=== PATIENT | female | born 1990 | race Caucasian/White ===

== ENCOUNTER → 2018-05-19 01:09 | Outpatient (CLI) | payer MEDICAID | END | disposition home or self-care (01) | LOC: D.LDO 01:09 | PROVIDERS: ATTEND Obstetrics & Gynecology | DX: O26.853 Spotting complicating pregnancy, third trimester (principal); Z3A.37 37 weeks gestation of pregnancy ==

== ENCOUNTER 2018-05-29 05:05 | Inpatient (IN) | payer MEDICAID ==
[~2018-05-29] VITALS: Ht 167.6 cm; Wt 120.9 kg
[2018-05-29 06:08] LABS: HEMATOCRIT 35.4 % (36.0-48.0); MCH 30.3 pg (26.0-34.0); MCHC 33.9 g/dL (31.0-37.0); MCV 89.4 fL (80.0-100.0); MEAN PLATELET VOLUME 9.9 fL (7.4-10.4); RBC 3.96 10x6/uL (4.00-5.40); RDW 13.8 % (11.5-14.5); WBC 12.1 10x3/uL (4.8-10.8)
[2018-05-29] MEDS ORDERED: PREPLUS CA-FE1 EACH PO (06:14)
[2018-05-29 06:28] VITALS: BP 110/72; Ht 167.6 cm; Wt 120.9 kg
--- NOTE | 2018-05-29 19:55 | NUR ---
PATIENT AMBULATED WITH ASSISTANCE TO ROOM 1273 FOR CARE. PT C/O CONTINUED PAIN TO HER LOWER BACK WHERE THE EPIDURAL WAS PLACED WELL ABDOMINAL CRAMPING, ASKING WHEN HER NEXT MOTRIN IS DUE. INFORMED HER THAT HER MOTRIN IS SCHEDULED EVERY 8HRS AND THAT IT WILL BE DUE AROUND 0119. DR ALFORD CALLED ABOUT PT COMPLAINT OF PAIN, NEW ORDERS NOTED.
--- NOTE | 2018-05-29 19:58 | NUR ---
TYLENOL#3 ADMINISTERED WITH WATER AT THIS TIME. SEE EMAR
--- NOTE | 2018-05-29 20:00 | NUR ---
DR. ALFORD CALLED UNIT AND INQUIRED ABOUT STATUS OF MOTRIN ORDER DUE TO SURGERY IN AM. MD STATES TO HOLD AFTER MIDNIGHT AND CONTINUE WITH TYLENOL #3 ORDERED FOR PAIN, IF NEEDED.
--- NOTE | 2018-05-29 20:25 | NUR ---
WALKING IN HALLWAY. GAIT STEADY.
--- NOTE | 2018-05-29 21:46 | NUR ---
LYING IN BED WITH INFANT IN OPEN CRIB AT BEDSIDE. DENIES ANY NEEDS AT THIS TIME.
--- NOTE | 2018-05-29 22:10 | NUR ---
PT. LYING ON RT SIDE HOLDING . STATES ABD. CRAMPING IS ABOUT THE SAME BUT THAT SHE REMEMBERS THAT CRAMPING IS WORSE WITH . STATES PAIN SUBSIDES AND THEN RETURNS. STATES SOME STINGING WITH VOIDING. WITH SUPPLY ZULEIKA BOTTLE FOR HER TO USE TO SPRAY PERINEAL AREA SHE VOIDS.
--- NOTE | 2018-05-29 22:53 | NUR ---
PT. CALLED TO REPORT THAT SHE HAS COMPLETED AND READY FOR MEDS, ETC.
[2018-05-29 23:01] VITALS: BP 120/60
--- NOTE | 2018-05-29 23:01 | NUR ---
SALINE LOCK FLUSHED. FOB HOLDING AT PRESENT. PT. ASKING REASON FOR BETADINE WITH ZULEIKA BOTTLE. INFORMED THAT SHE COULD USE WARM WATER IN ZULEIKA BOTTLE WHEN VOIDING TO HELP WITH STINGING OR COULD ADD BETADINE TO MAKE WATER TEA COLORED IF USING FOR CLEANING PERINEAL AREA. PT. RELATES THAT SHE WILL JUST USE WITH WARM WATER. INFORMED PT. WHEN NEXT TYLENOL #3 WAS DUE AND PT. RELATES THAT SHE WILL TAKE AT THAT TIME. DISCUSSED HOLD ON MOTRIN DUE TO SURGERY IN AM AND PT.STATES UNDERSTANDING.
[2018-05-30] VITALS (7 sets, daily range): BP systolic 106–122; BP diastolic 59–75
--- NOTE | 2018-05-30 00:04 | NUR ---
PT. LYING ON RT SIDE LOOKING AT PHONE. INFANT IN OPEN CRIB AT BEDSIDE. FOB SLEEPING ON SOFA. PT. RATES PAIN A 7 OF 10 ON PAIN SCALE. STATES SHE HAS ABD. CRAMPING AND ALSO BACKPAIN. ADMITS SHE IS SLEEPY. PAIN MED GIVEN ORDERED. FUNDUS FIRM U/3 AND MIDLINE. LOCHIA RUBRA SCANT TO MOD. INQUIRED IF PT. DESIRED LIGHTS DIMMED AND PT. REPORTS THAT SHE DOES. REMINDED PT. THAT SHE DOES NOT NEED TO EAT OR DRINK AFTER MIDNIGHT DUE TO PLANNED SURGERY IN AM. INFORMED SIPS OF WATER WITH MEDS IS ACCEPTABLE. PT. STATES UNDERSTANDING.
--- NOTE | 2018-05-30 01:05 | NUR ---
PT. SITTING UP IN BED HOLDING INFANT WHICH IS CURRENTLY ASLEEP. STATES PAIN HAS NOT RESOLVED. INQUIRED IF SHE FELT A WARM BLANKET TO BACK AND ABD. MIGHT HELP. PT. STATES THAT SHE FELT IT WOULD. WARM BLANKETS FROM BLANKET WARMER APPLIED TO BACK AND PT. ABD. INFORMED WOULD BE BACK TO GET INFANT AT APPROX. 0130 FOR WEIGHT AND VITAL SIGNS. PT. STATES UNDERSTANDING.
--- NOTE | 2018-05-30 01:50 | NUR ---
INFANT TO PATIENT FOR FEEDING. ENCOURAGED PT. TO KEEP SKIN TO SKIN WHILE FEEDING DUE TO LOW TEMP. AT LAST CHECK. PT. STATES UNDERSTANDING.
--- NOTE | 2018-05-30 02:18 | NUR ---
CALLED TO REPORT THAT WAS FINISHED . ENCOURAGED PT. TO KEEP INFANT SKIN TO SKIN FOR A WHILE LONGER TO GET HIM WARM. PT. STATES SHE ENJOYS HOLDING HIM SO THAT WAS FINE.
--- NOTE | 2018-05-30 02:30 | NUR ---
FOB HOLDING AT PRESENT. PT. UP TO BATHROOM. LYING UNDER BLANKET WITH FOB. TAKEN FROM FOB AND TEMP. CHECKED AND RESWADDLED IN TWO BLANKETS. HAT REMAINS ON.
--- NOTE | 2018-05-30 04:10 | NUR ---
PT. SITTING UP IN BED. INFANT IN OPEN CRIB AT BEDSIDE. INQUIRED IF PT. DESIRED PAIN MED. PT. REPLIES "I GUESS". INFORMED WOULD BRING. FOB SLEEPING ON SOFA.
--- NOTE | 2018-05-30 05:11 | NUR ---
PT. CALLED AND STATES THAT SHE WOULD LIKE TO GIVE FORMULA. STATES SHE IS FRUSTRATED WITH . INQUIRED ABOUT HER PAIN LEVEL. STATES SHE CAN'T TELL ANY DIFFERENCE FROM WHEN SHE TOOK PAIN MED.
--- NOTE | 2018-05-30 05:19 | NUR ---
DR. ALFORD CALLED AND INFORMED THAT PT. CONTINUES TO COMPLAIN OF ABD. CRAMPING AND BACKPAIN. REPORT GIVEN OF FREQ. TYLENOL # 3 HAS BEEN GIVEN. ORDER RECEIVED.
--- NOTE | 2018-05-30 05:32 | NUR ---
FUR CLEANER CALLED FOR PYXIS OVERRIDE FOR PAIN MED.
--- NOTE | 2018-05-30 05:45 | NUR ---
ADDITIONAL TYLENOL #3 GIVEN DIRECTED PER . PT. STATES THAT SHE IS REALLY TIRED AND SHE HAS BEEN STRESSING ABOUT AND SHE DESIRES TO BOTTLE FEED FOR NOW ON. INFORMED WOULD INFORM NBN PERSONNEL.
--- NOTE | 2018-05-30 07:30 | NUR ---
AM ASSESSMENT COMPLETED CHARTED ON FLOWSHEET. SURGERY CHECKLIST ALSO DONE AT THIS TIME. FUNDUS FIRM AT U/U WITH LIGHT BLEEDING NOTED TO ZULEIKA PAD, PT DENIES CLOTS WITH VOIDS. SHE DOES COMPLAIN OF CONSTANT CRAMPING AND "ACHE" TO LOWER BACK THAT SHE RATES AT 8/10, STATES THAT SHE HAS NOT GOTTEN ANY RELIEF THRU THE NIGHT. PT IS TALKING ABOUT HER DISCOMFORT DR RUIZ ENTERS ROOM, PT EXPLAINS PAIN TO MD WHO QUESTIONS WHEN LAST MOTRIN WAS RECEIVED EMAR CHECKED, VERBAL ORDER THAN RECEIVED TO GIVEN 30MG TORDAL IV NOW. MD QUESTIONS WHY SHE WAS NOT NOTIFIED ABOUT PT DISCOMFORT AND WHY MOTRIN WAS HELD. EXPLAINED THAT REPORT RECIEVED THIS AM THAT MD AIR HOSE COUPLER WAS NOTIFIED ABOUT PT PAIN AND THERE WAS A CHANGE TO MED/DOSE GIVEN. NO OTHER QUESTIONS FROM MD.
--- NOTE | 2018-05-30 07:34 | NUR ---
LAB CALLED TO CHECK ON CBC RESULTS. ADAMA REPORTS THAT HAS NOT BEEN DRAWN AT THIS TIME BUT WILL GET DRAWN WENDY.
--- NOTE | 2018-05-30 07:35 | NUR ---
TORDAL GIVEN SLOW IV PUSH, SALINE LOCK FLUSHED WITH 5ML PRIOR TO MED GIVEN AND AFTER WITH ANOTHER 5ML. PT DENIES DISCOMFORT WITH IVPUSH. DENIES NEEDS AT THIS TIME. LIGHT TURNED OFF PER REQUEST. SIDE RAILS UP X 2 WITH PHONE AND CALL LIGHT WITH IN HER REACH.
[2018-05-30 08:04] LABS: BASOPHILS 0.1 % (0-2); EOSINOPHILS 1.7 % (0-7); HEMATOCRIT 32.4 % (36.0-48.0); HEMOGLOBIN 10.8 g/dL (12-16); IMMATURE GRANULOCYTES 0.3 % (0-5); LYMPHOCYTES 25.7 % (15-50); MCH 30.1 pg (26.0-34.0); MCHC 33.3 g/dL (31.0-37.0); MCV 90.3 fL (80.0-100.0); MEAN PLATELET VOLUME 10.1 fL (7.4-10.4); MONOCYTES 7.1 % (2-11); NEUTROPHILS 65.1 % (40-80); PLATELET COUNT 203 10x3/uL (130-400); RBC 3.59 10x6/uL (4.00-5.40); WBC 10.4 10x3/uL (4.8-10.8)
--- NOTE | 2018-05-30 08:15 | NUR ---
PT LYING TO LEFT SIDE IN BED. WAKES UPON ENTERING ROOM. STATES PAIN MEDICATION RELIEVING PAIN.
--- NOTE | 2018-05-30 10:19 | NUR ---
PT LYING TO RIGHT SIDE IN BED. EYES CLOSED. RESP NON-LABORED. SO IN ROOM WITH PT AND INFANT.
--- NOTE | 2018-05-30 11:31 | NUR ---
PT TO OR VIA STRETCHER PER OR STAFF.
--- NOTE | 2018-05-30 14:18 | NUR ---
RECEIVED PT FROM VIA STRETCHER TO ROOM 1273. PT TRANSFERS ONTO BED PER SELF. STATES LEGS ARE NUMB, BUT ABLE TO MOVE OVER TO BED. VSS. PT AAO X 3. HRRR WITHOUT AUDIBLE MURMUR. BBS CLEAR. BS X 4. ABDOMEN SOFT/NON-DISTENDED. DRESSING TO UMB DRY WITHOUT DRAINAGE NOTED. PIV TO RIGHT WRIST OF NS INFUSING AT KVO RATE. SITE CLEAR. DESIR TO GRAVITY DRAINING CLEAR, YELLOW URINE. FUNDUS FIRM AT U/1. RUBRA LOCHIA SMALL AMT. SCDS ON BLE. PUMP ON. PT STATES PAIN OF "5" ON 0-10 PAIN SCALE. ORIENTED TO ROOM, BED, AND CALL LIGHT. SR UPX 2. CALL LIGHT IN REACH.
--- NOTE | 2018-05-30 14:22 | NUR ---
DR RUIZ TO ROOM. VISITS WITH PT. ORDERS RECEIVED.
--- NOTE | 2018-05-30 14:34 | NUR ---
MOTRIN 800 MG, PERCOCET 5/325, TUCKS, AND DERMAPLAST SPRAY GIVEN ORDERED. PT INSTRUCTED ON MEDS. VERBALIZES UNDERSTANDING. PIV CONVERTED TO SALINE LOCK. SITE CLEAR.
--- NOTE | 2018-05-30 15:22 | NUR ---
PT STATES DESIRE TO AMB TO BR. DESIR DC'D WITH 575 ML OF CLEAR, YELLOW URINE NOTED IN BAG. PT AMBULATES TO BR. UNABLE TO VOID. PERICARE DONE PER PT. PANTIES AND PAD ON. PT AMB BACK TO BED. BERTHA ACTIVITY WELL.
--- NOTE | 2018-05-30 16:30 | NUR ---
PT SITTING UP IN BED. CARING FOR INFANT. DENIES NEEDS OR C/O.
--- NOTE | 2018-05-30 17:00 | NUR ---
PT SITTING UP IN BED. VISITS WITH FAMILY. DENIES C/O OR NEEDS.
--- NOTE | 2018-05-30 18:42 | NUR ---
PT SITTING UP ON SIDE OF BED. CARING FOR . C/O INCISIONAL PAIN. REQUESTS AND RECEIVES PERCOCET 5/325 PO ORDERED. PT INSTRUCTED ON MED. VERBALIZES UNDERSTANDING.
--- NOTE | 2018-05-30 19:14 | NUR ---
BEDSIDE ROUNDS MADE. PT CONVERSING WITH VISITORS, DENIES NEEDS. BED IN LOW POSITION WITH UPPER SIDE RAILS RAISED X2. CALL LIGHT AND PHONE WITHIN REACH. WILL CONTINUE TO MONITOR AND ASSIST PRN.
--- NOTE | 2018-05-30 20:34 | NUR ---
FORMULA PROVIDED PER REQUEST. C/O INTERMITTENT ABD CRAMPING 06/29 AND CONSTANT INCISIONAL ACHING/BURNING/STINGING 08/29. REVIEWED PAIN INTERVENTIONS WITH PT, REQUEST 2 TABS TYLENOL #3 PER ORDER, GIVEN PER ORDER AND PT REQUEST. MILK OF MAG GIVEN, SL TO RIGHT WRIST FLUSHED WITHOUT DIFFICULTY, NO S/S OF INFILTRATION NOTED. REQUESTED ASSESSMENT BE DONE FOLLOWING FEEDING . INSTUCTED TO CALL USING CALL LIGHT, VERBALIZES UNDERSTANDING. ICE WATER AND CLEAN RECEIVING BLANKETS PROVIDED. BED IN LOW POSITION WITH UPPER SIDE RAILS RAISED X2. CALL LIGHT AND PHONE WITHIN REACH.
--- NOTE | 2018-05-30 21:06 | NUR ---
SHIFT ASSESSMENT COMPLETED. REPORTS THAT IS IN NBN FOR HEARING SCREEN. PAIN REASSESSMENT COMPLETED, REPORTS THAT PAIN "IS A LITTLE BETTER", 6/10 CONSTANT INCISIONAL ACHING, DENIES NEED FOR ADDITIONAL INTERVERNTION AT THIS TIME. VSS. BREATH SOUNDS CLEAR AND EQUAL BILATERALLY, REGULAR RATE NOTED, NO S/S OF DISTRESS. FUNDUS FIRM, MIDLINE AND U2 WITH SCANT RUBRA LOCHIA, NO CLOTS PRESENT. PT DENIES CLOTS WHEN VOIDING. STATES THAT SHE IS PASSING FLATUS AND VOIDING WITHOUT DIFFICULTY. BOWEL SOUNDS PRESENT AND ACTIVE X4 QUADS. BORDERED GAUZED WITH TEGADERM OVER IT NOTED TO UNBILICUS WITH SMALL AMT SEROSANGUINEOUS COLORED DRAINAGE NOTED, AREA MARKED ON DRSG. PT REQUESTS TO SHOWER, INSTRUCTED TO LEAVE DRSG IN PLACE, VERBALIZES. REPORTS THAT SHE IS PASSING FLATUS, ENCOURAGED TO AMBULATE ON UNIT THIS EVENING, STATES THAT SHE HAS BEEN AMBULATING IN ROOM AND HAS WALKED IN THE [place]EM[place] DURING THE DAY. SALINE LOCK TO RIGHT WRIST REMAINS IN PLACED AND COVERED FOR SHOWER. ICE WATER, PANTIES, PERIPADS PROVIDED. STATES THAT IS PERFORMING PERICARE WITH EACH VOID AND DENIES QUESTIONS. PLAN OF CARE REVIEWED, VERBALIZES UNDERSTANDING AND AGREEMENT. BED IN LOW POSITION WITH UPPER SIDE RAILS RAISED X2. CALL LIGHT AND PHONE WITHIN REACH.
--- NOTE | 2018-05-30 21:20 | NUR ---
UP TO SHOWER. PT EDUCATED PHLEBOTOMY SUPPORT TECH LIGHT USE IN BATHROOM AND VERBALIZES UNDERSTANDING. STEADY GAIT NOTED. LINEN CHANGE DONE. BED PLACED IN LOW POSITION WITH UPPER SIDE RAILS RAISED X2.
--- NOTE | 2018-05-30 21:38 | NUR ---
PT OUT OF SHOWER. REPORTS THAT SHOWER HELPED TO RELIEVE PAIN MORE THAN PAIN MEDICATION DID. PAIN 04/29, STATES "I FEEL A LOT MORE RELAXED NOW AND AM GOING TO REST." BED IN LOW POSITION WITH UPPER SIDE RAILS RAISED X2. CALL LIGHT AND PHONE WITHIN REACH. WILL CONTINUE TO MONITOR AND ASSIST PRN.
--- NOTE | 2018-05-30 22:34 | NUR ---
C/O PAIN 4/10, INCISIONAL ACHING, BURNING, AND STINGING CONSTANTLY AND INTERMITTENT ABD CRAMPING. MOTRIN GIVEN PER ORDER. ICE WATER PROVIDED. DENIES ADDITIONAL NEEDS AT THIS TIME. BED IN LOW POSITION WITH UPPER SIDE RAILS RAISED X2. CALL LIGHT AND PHONE WITHIN REACH. WILL CONTINUE TO MONITOR AND ASSIST PRN.
--- NOTE | 2018-05-30 23:12 | NUR ---
PAIN REASSESSMENT COMPLETED. PT LAYING ON LEFT SIDE, RESTING WITH EYES CLOSED, RESPIRATIONS REGULAR AND UNLABORED, NO S/S OF DISTRESS NOTED. BED IN LOW POSITION WITH UPPER SIDE RAILS RAISED X2. CALL LIGHT AND PHONE WITHIN REACH. WILL CONTINUE TO MONITOR AND ASSIST PRN.
--- NOTE | 2018-05-31 00:15 | NUR ---
PT C/O PAIN RATED 7/10 ON NUMERIC PAIN SCALE. PRN MED GIVEN WITH SIPS WATER. PT AMBULATORY IN ROOM. PT AWAKE AND ALERT NO OTHER NEEDS VOICED AT THIS TIME. CALL LIGHT IN EASY REACH. CONTINUE TO MONITOR.
[2018-05-31 01:18] VITALS: BP 124/69
--- NOTE | 2018-05-31 01:18 | NUR ---
VSS. PAIN REASSESSMENT COMPLETED. 06/29 CONSTANT INCISIONAL BURNING AND STINGING. DENIES NEED FOR ADDITIONAL INTERVENTION. STATES THAT PAIN IS BETTER THAN WHEN PERCOCET TAB. AT BEDSIDE RESTING IN OPEN CRIB. ICE WATER PROVIDE. BED IN LOW POSITION WITH UPPER SIDE RAILS RAISED X2. CALL LIGHT AND PHONE WITHIN REACH. WILL CONTINUE TO MONITOR AND ASSIST PRN.
--- NOTE | 2018-05-31 03:36 | NUR ---
SITTING ON EDGE OF BED CARING FOR INFANT. REQUEST ICE WATER AND PROVIDED PER REQUEST. DENIES ADDITIONAL NEEDS. BED IN LOW POSITION WITH UPPER SIDE RAILS RAISED X2. CALL LIGHT AND PHONE WITHIN REACH. WILL CONTINUE TO MONITOR AND ASSIST PRN.
--- NOTE | 2018-05-31 04:22 | NUR ---
C/O INCISIONAL PAIN 08/29, CONSTANT ACHE, BURNING, AND STINGING. PERCOCET GIVEN PER ORDER AND PT REQUEST. REPORTS THAT SHE FEELS LIKE SHE HAS MORE DRAINAGE ON DRSG "IT FEELS LIKE IT'S WET TO ME." NO NEW DRAINAGE NOTED FROM PREVIOUS MARKED AREA EARILER DURING THIS SHIFT. VSS. FUNDUS REMAINS FIRM, MIDLINE AND U2 WITH SMALL AMT RUBRA LOCHIA, NO CLOTS NOTED AT THIS TIME. PT REPORTS THAT SHE HAD 3 CLOTS "A LITTLE BIGGER THAN QUARTERS WHEN I USED THE BATHROOM." ICE PACK PROVIDED PER PT REQUEST AND INFANT BACK TO NBN. BED IN LOW POSITION WITH UPPER SIDE RAILS RAISED X2. CALL LIGHT AND PHONE WITHIN REACH. WILL CONTINUE TO MONITOR AND ASSIST PRN.
--- NOTE | 2018-05-31 05:01 | NUR ---
PAIN REASSESSMENT DONE. PT IN SEMI FOWLERS POSITION RESTING WITH EYES CLOSED. RESPIRATIONS REGULAR AND UNLABORED, NO S/S OF DISTRESS NOTED. BED IN LOW POSITION WITH UPPER SIDE RAILS RAISED X2. CALL LIGHT AND PHONE REMAIN WITHIN REACH. WILL CONTINUE TO MONITOR AND ASSIST PRN
--- NOTE | 2018-05-31 06:37 | NUR ---
RIGHT WRIST SL FLUSHED WITHOUT DIFFICULTY, NO S/S OF INFILTRATION NOTED. C/O PAIN 5-6/10, MOTRIN GIVEN. PT QUESTIONS RN REGARDING TYLENOL #3 TAB ORDER. REVIEWED ORDER WITH PT. PT STATES "CAN I HAVE IT AGAIN? IT REALLY DID HELP MY PAIN LAST NIGHT?" 2 TABS TYLENOL #3 GIVEN PER ORDER AND REQUEST. ICE WATER PROVIDED. BED IN LOW POSITION WITH UPPER SIDE RAILS RAISED X2. CALL LIGHT AND PHONE WITHIN REACH. WILL CONTINUE TO MONITOR AND ASSIST PRN.
--- NOTE | 2018-05-31 07:12 | NUR ---
PT RESTING WITH EYES CLOSED IN SEMI FOWLERS POSITION. RESPIRATIONS REGULAR AND UNLABORED, NO S/S OF DISTRESS NOTED. REPORT GIVEN TO Sushma SHELDON RN.
--- NOTE | 2018-05-31 08:30 | NUR ---
AM ASSESSMENT COMPLETED CHARTED ON FLOWSHEET. PT UP WALKING AROUND ROOM BUT DENIES DESIRE TO AMBULATE IN HALLS. RATES PAIN AT 6/10 AND STATES SHE STILL HAS CRAMPING BUT NOW HAS SUDDEN SHARP PAIN THRU HER HIPS, SHE STATES THAT THE HIP PAINN COMES AND GOES AND USUALLY HAPPENS WHEN SHE IS STILL FOR TO LONG. SALINE LOCK TO RIGHT WRIST THAT IS PATENT AND FLUSHES EASILY WITH 5ML NS. TOWELS TO BATHROOM PER PT REQUEST. INFANT BEING HELD AND FEED BY FOB. PT ASK FOR PAIN MED IF WAS TIME IF NOT COULD PLEASE BRING TO HER WHEN TIME.
--- NOTE | 2018-05-31 09:11 | NUR ---
PERCOCET 5/325MG GIVEN SCANNED TO EMAR. PT DENIES ANY FUTHER NEEDS AT THIS TIME. VISITORS PRESENT AND IN CRIB AT BEDSIDE.
--- NOTE | 2018-05-31 09:45 | NUR ---
PAIN REASSESMENT, PT IN BED TURNED TO HER RIGHT SIDE, RATES PAIN AT 5/10 AND STATES STILL FEEL ABOUT SAME BEFORE PAIN MED WAS GIVEN. WARM BLANKET OFFERED FOR HER BACK AND SHE IS AGREEABLE. LIGHTS DIMMED PER HER REQUEST. IN NBN AT THIS TIME. SIDE RAILS UP X 2 WITH CALL LIGHT IN REACH.
--- NOTE | 2018-05-31 11:45 | NUR ---
LARGE CUP OF ICE PER REQUST. PT UP SITTING IN CHAIR AT BEDSIDE, DRESSED IN HER CLOTHES. RATES PAIN AT 5/10 BUT DENIES NEED FOR MEDICATION. AT BEDSIDE IN CRIB. CALL LIGHT IN REACH.
--- NOTE | 2018-05-31 14:08 | NUR ---
PT RINGS CALL LIGHT- REQUESTING PAIN MEDICATION. ENTERED ROOM- CO NERVE PAIN LT UPPER BUTTOCKS- RATES PAIN A 8 ON SCALE OF 0-10. MEDS GIVEN.
--- NOTE | 2018-05-31 14:13 | NUR ---
SALINE LOCK REMOVED WITH CATH TIP INTACT- PRESSURE HELD AND BANDAIDE APPLIED.
[2018-05-31] MEDS ORDERED: PERCOCET 5-3251 TAB PO (14:21)
[2018-05-31] MEDS ORDERED: IBUPROFEN800 MG PO (14:21)
[2018-05-31] MEDS ORDERED: NEURONTIN600 MG PO (14:22)
--- NOTE | 2018-05-31 15:45 | NUR ---
VERBAL AND WRITTEN DISCHARGE INSTRUCTIONS GONE OVER WITH PT. SHE IS ALSO PROVIDED WITH WRITTEN SCRIPT FOR PERCOCET 5/325MG AND STATES UNDERSTANDING OF ALL INFO PROVIDED. ALREADY SECURED IN CARRIER AND HAS BEEN VERIFIED BY NURSERY NURSE. TAKEN OUT WITH FAMILY, HOME BY PRIVATE CAR WITH FAMILY.
== END 2018-05-31 15:45 | disposition home or self-care (01) | DRG 798 ==
LOC: D.LDO 05:05 → D.LD 05:30 → D.SDCHOLD 05-30 16:37 → D.LD 05-30 16:38
PROVIDERS: ADMIT Obstetrics & Gynecology; ATTEND Obstetrics & Gynecology
PROC: 10E0XZZ Delivery of Products of Conception, External Approach (ICD-10-PCS; principal; 2018-05-29)
PROC: 10907ZC Drainage of Amniotic Fluid, Therapeutic from Products of Conception, Via Natural or Artificial Opening (ICD-10-PCS; 2018-05-29)
PROC: 0HQ9XZZ Repair Perineum Skin, External Approach (ICD-10-PCS; 2018-05-29)
PROC: 0UB70ZZ Excision of Bilateral Fallopian Tubes, Open Approach (ICD-10-PCS; 2018-05-30)
DX: O99.824 Streptococcus B carrier state complicating childbirth (principal); Z37.0 Single live birth; Z3A.39 39 weeks gestation of pregnancy; O99.344 Other mental disorders complicating childbirth; F32.9 Major depressive disorder, single episode, unspecified; O99.214 Obesity complicating childbirth; Z68.37 Body mass index [BMI] 37.0-37.9, adult; Z30.2 Encounter for sterilization; Z30.09 Encounter for other general counseling and advice on contraception; O70.0 First degree perineal laceration during delivery

== ENCOUNTER 2019-02-25 23:06 | Emergency (ER) | payer MEDICAID ==
[~2019-02-25] VITALS: Ht 167.6 cm; Wt 97.7 kg
[~2019-02-25 23:06] MED LIST: IBUPROFEN800 MG PO; NEURONTIN600 MG PO; PERCOCET 5-3251 TAB PO; PREPLUS CA-FE1 EACH PO
[2019-02-25 23:18] VITALS: Ht 167.6 cm; Wt 97.7 kg
[2019-02-25] MEDS ORDERED: WELLBUTRIN (23:20)
[2019-02-25] MEDS ORDERED: KLONOPIN1 MG (23:21)
[2019-02-25 23:52] LABS: HEMOGLOBIN 14.3 g/dL (12-16); LYMPHOCYTES 41.6 % (15-50); MCH 30.7 pg (26.0-34.0); MCV 90.1 fL (80.0-100.0); MEAN PLATELET VOLUME 8.7 fL (7.4-10.4); NEUTROPHILS 54.4 % (40-80); PLATELET COUNT 347 10x3/uL (130-400); RBC 4.66 10x6/uL (4.00-5.40); RDW 12.1 % (11.5-14.5); WBC 8.8 10x3/uL (4.8-10.8)
[2019-02-26 00:07] LABS: CALC OSMOLALITY 276 mosm/kg (275-300); CALCIUM 9.2 mg/dL (8.5-10.1); CARBON DIOXIDE 27.3 mmol/L (21.0-32.0); CHLORIDE - SERUM 103 mmol/L (98-107); CREATININE - SERUM 0.8 mg/dL (0.6-1.3); GLUCOSE 99 mg/dL (74-106); POTASSIUM - SERUM 3.8 mmol/L (3.5-5.1); SODIUM 140 mmol/L (136-145); UREA NITROGEN 8 mg/dL (7-18); eGFR NON AFRICAN AMERICAN 90 mL/min (90-120)
--- NOTE | 2019-02-26 00:10 | NUR ---
DR. SARABIA NOTIFIED AND SITTER ORDERED. SITTER AT BEDSIDE. NOTIFIED CHARGE NURSE AND ATTENDING IN REGARDS TO ASSESSMENT FINDINGS. RESOURCES GIVE TO PT AND SAFETY PLAN INITIATED.
[2019-02-26 00:18] LABS: ALKALINE PHOSPHATASE 77 U/L (46-116); ALT (SGPT) 27 U/L (10-68); BILIRUBIN - TOTAL 0.34 mg/dL (0.2-1.3); PROTEIN - SERUM 8.5 g/dL (6.4-8.2)
[2019-02-26 00:20] LABS: UDS - AMPHET NEGATIVE QUAL (NEGATIVE); UDS - BARB NEGATIVE QUAL (NEGATIVE); UDS - BENZO NEGATIVE QUAL (NEGATIVE); UDS - COCAINE NEGATIVE QUAL (NEGATIVE); UDS - OPIATE NEGATIVE QUAL (NEGATIVE); UDS - PCP NEGATIVE QUAL (NEGATIVE); UDS - THC NEGATIVE QUAL (NEGATIVE)
[2019-02-26 00:24] LABS: HCG SERUM NEGATIVE (NEGATIVE)
[2019-02-26 00:32] LABS: APPEARANCE CLEAR (CLEAR); BILIRUBIN NEGATIVE (NEGATIVE); COLOR YELLOW (YELLOW); GLUCOSE NEGATIVE (NEGATIVE); KETONE NEGATIVE (NEGATIVE); NITRITE NEGATIVE (NEGATIVE); PROTEIN NEGATIVE (NEGATIVE); SPECIFIC GRAVITY 1.005 (1.005-1.020); UROBILINOGEN NORMAL (NORMAL)
[2019-02-26 00:34] LABS: BACTERIA FEW /hpf (NEGATIVE); EPITHELIAL CELLS 0-5 /hpf (0-5); RED CELLS - URINE 0-5 /hpf (0-5); WHITE CELLS - URINE 0-5 /hpf (NEGATIVE)
[2019-02-26 04:45] VITALS: BP 111/70
== END 2019-02-26 04:48 ==
LOC: D.ER 23:06
PROVIDERS: Family Medicine
DX: R45.851 Suicidal ideations (principal); F31.9 Bipolar disorder, unspecified